=== PATIENT | female | born 1970 ===

== ENCOUNTER → 2020-05-05 | Outpatient (CLI) | payer OTHER | END | disposition home or self-care (01) | LOC: TOM 04-24 10:15 | PROVIDERS: ATTEND Urology | DX: R19.09 Other intra-abdominal and pelvic swelling, mass and lump (principal); N32.1 Vesicointestinal fistula ==

== ENCOUNTER 2020-06-09 09:51 | Outpatient (CLI) | payer OTHER | END 2020-06-09 10:16 | disposition home or self-care (01) | LOC: TOM 09:51 | PROVIDERS: ATTEND Urology | DX: L98.8 Other specified disorders of the skin and subcutaneous tissue (principal); R31.0 Gross hematuria; K80.20 Calculus of gallbladder without cholecystitis without obstruction ==

== ENCOUNTER 2020-09-12 11:48 | Outpatient (CLI) | payer OTHER | END 2020-09-12 12:17 | disposition home or self-care (01) | LOC: RX STUDY 11:48 | PROVIDERS: ATTEND Urology | DX: R31.0 Gross hematuria (principal) ==

== ENCOUNTER 2020-10-24 10:56 | Outpatient (CLI) | payer OTHER | END 2020-10-24 14:44 | disposition home or self-care (01) | LOC: RX STUDY 10:56 → TOM 10:56 → RX STUDY 14:44 | PROVIDERS: ATTEND Urology | DX: R31.1 Benign essential microscopic hematuria (principal) ==